=== PATIENT | female | born 1980 | race Caucasian/White ===

== ENCOUNTER 2016-05-28 07:50 | Day surgery (SDC) | payer OTHER ==
[~2016-05-28] VITALS: Ht 177.8 cm; Wt 90.3 kg
[~2016-05-28 07:50] MED LIST: CELE100C PO; RANI75TA13 PO; SERT25TA PO
[2016-05-28 08:24] VITALS: Ht 177.8 cm; Wt 90.3 kg
[2016-05-28] MEDS ORDERED: ESTRODOL (08:27)
[2016-05-28] MEDS ORDERED: QUET300T13 PO (08:31)
[2016-05-28] MEDS ORDERED: OMEP40CA6 PO (08:31)
[2016-05-28] MEDS ORDERED: CLON-412 PO (08:31)
[2016-05-28] MEDS ORDERED: LAMO200T18 PO (08:31)
[2016-05-28] MEDS ORDERED: SERT100T PO (08:31)
[2016-05-28 08:49] VITALS: BP 124/73; PULSE 72; RESP 18
[2016-05-28] MEDS ORDERED: PROPOFOL 60 ML ONE (09:05)
[2016-05-28] MEDS ORDERED: LIDOCAINE 2% (SDV) 5 ML INJ ONE ×2 (09:06→09:29)
[2016-05-28 09:56] VITALS: BP_SYST 108; RESP 20
--- NOTE | 2016-05-28 12:09 | GILP ---
DATE OF PROCEDURE: 05/28/2016 PROCEDURE: Colonoscopy. 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 The risks of the procedure, related and unrelated complications, anesthetic ri sks, alternatives discussed and informed consent was obtained. DESCRIPTION OF PROCEDURE: The patient was brought to the GI lab, sedated by Dr. Sin. The scope w as passed with much ease into rectum, advanced through sigmoid, descending, transverse colon all the way into cecum. Appendiceal orifice identified. IC valve identified. The whole caput of the cecu m was covered with a thin layer of stool. We cleaned it with a jet of water and so far no lesion wa s identified. IC valve was tight. While coming out, the rest of the mucosa thoroughly inspected. No gross lesion was identified. Solitary diverticulum seen. Retroversion done, small hemorrhoids i dentified. Scope was straightened out and removed with good patient tolerance. IMPRESSION: 1. Normal finding all the way into cecum. 2. Solitary diverticulum in the descending colon. 3. Small hemorrhoids. 4. Slight inadequate prep. PLAN: At this point, is to stay on a high fiber diet. The patient needs repeat colonoscopy in 5 ye ars. Dictated By: LENARD ESQUIVEL/NTS Conf#: [id number] DID#: [id number] CC: JHONATAN; LENARD CLEMENS MD;*EndCC*
== END 2016-05-28 11:49 | disposition home or self-care (01) ==
LOC: GIL 07:50
PROVIDERS: ATTEND Internal Medicine Gastroenterology
DX: Z12.11 Encounter for screening for malignant neoplasm of colon (principal); K57.90 Diverticulosis of intestine, part unspecified, without perforation or abscess without bleeding; K64.9 Unspecified hemorrhoids
CPT/HCPCS: 45378; Z7610

== ENCOUNTER 2017-01-15 07:51 | Day surgery (SDC) | payer OTHER ==
[2017-01-14 09:52] VITALS: BMI 28.3
[~2017-01-15] VITALS: Ht 177.8 cm; Wt 89.5 kg
[2017-01-15] VITALS (11 sets, daily range): BP systolic 92–119; BP diastolic 62–78; PULSE 59–82; RESP 11–22; Ht 177.8 cm; Wt 89.5 kg
[~2017-01-15 07:51] MED LIST changes: +CEFAZOLIN 1 GM INJ ONE; -CELE100C PO; +CLON-412 PO; +EPHEDrine SULFATE 50 MG/5 ML SYG ONE; +ESTRODOL; +LAMO200T18 PO; +OMEP40CA6 PO; +QUET300T13 PO; -RANI75TA13 PO; +SERT100T PO
[2017-01-15] MEDS ORDERED: SOD CHLORIDE 0.9% 1,000 ML IV ONE (08:30)
[2017-01-15] MEDS ORDERED: LTH150C PO (08:32)
[2017-01-15] MEDS ORDERED: LAMO100T PO (08:33)
[2017-01-15] MEDS ORDERED: GABA300C16 PO (08:34)
[2017-01-15] MEDS ORDERED: FIORICET PO (08:47)
[2017-01-15] MEDS ORDERED: CYCL-319 PO (08:48)
[2017-01-15] MEDS ORDERED: FENTAnyl 50 MCG/ML VIAL ONE (09:03)
[2017-01-15] MEDS ORDERED: LIDOCAINE 2% (SDV) 5 ML INJ ONE (09:03)
[2017-01-15] MEDS ORDERED: PROPOFOL 20 ML ONE (09:03)
[2017-01-15] MEDS ORDERED: DEXAMETHASONE 4 MG/ML 1 ML INJ ONE (09:04)
[2017-01-15] MEDS ORDERED: MIDAZOLAM 1 MG/ML 2 ML INJ ONE (09:04)
[2017-01-15] MEDS ORDERED: ONDANSETRON 4 MG INJ ONE (09:05)
[2017-01-15] MEDS ORDERED: FAMOTIDINE 20 MG INJ ONE (09:05)
[2017-01-15] MEDS ORDERED: OXYCODONE/ACETAMINOPHEN (5/325) TAB PO PRN ×2 (10:00)
[2017-01-15] MEDS ORDERED: MEPERIDINE 25 MG INJ IV PRN (10:00)
[2017-01-15] MEDS ORDERED: DIPHENHYDRAMINE 50 MG INJ IV PRN (10:00)
[2017-01-15] MEDS ORDERED: METOCLOPRAMIDE 10 MG INJ IV PRN (10:00)
[2017-01-15] MEDS ORDERED: FENTAnyl 50 MCG/ML VIAL IV PRN ×2 (10:00)
--- NOTE | 2017-01-15 10:36 | SIPON ---
Date/Time of Note Date/Time of Note DATE: 01/15/17 TIME: 10:35 Operative Report Preoperative Diagnosis Left breast mass Postoperative Diagnosis Same Operation/Procedure Performed Excision of left breast mass Surgeon see signature line pediatric dental assistant Dr Jones Anesthesia: general Estimated blood loss: 0 - 10 ml's Transfusion Required none Specimen Left breast mass Grafts/Implants none Complications none EVA TORRES MD Jan 15, 2017 10:36
[2017-01-15] MEDS: FENTAnyl 50 MCG/ML VIAL IV PRN ×2 (10:58→11:05)
--- NOTE | 2017-01-15 11:27 | OPR ---
DATE OF OPERATION: 01/15/2017 PREOPERATIVE DIAGNOSIS: Left breast mass. POSTOPERATIVE DIAGNOSIS: Left breast mass. OPERATION PERFORMED: Excision of left breast mass. ANESTHESIA: General. ANESTHESIOLOGIST: Dr. Rossi. SURGEON: Dennys Bermudez MD HEAD BAKER: Dr. Jones. INDICATIONS FOR PROCEDURE: The patient is a 36-year-old female who presented with a palpable mass a pproximately the 2 o'clock location of the left breast adjacent to the nipple-areolar border. MRI w as performed and lesion had a benign appearance on MRI; however, the patient states she had symptoms and was requesting excision. She consented and was scheduled for surgery. DESCRIPTION OF PROCEDURE: The patient was brought to the operating theater, placed under general an esthesia. The left breast was prepped and draped in usual sterile fashion. A periareolar incision was made from the 12 o'clock location to the 3 o'clock location with 15 blade scalpel. Subcutaneous tissue was dissected with cautery. Skin edges were elevated with skin hooks and wide circumferenti al dissection of the tissue associated with the mass took place. It was elevated, transected, and s ent for permanent pathologic analysis. The wound was irrigated. Residual bleeding was controlled w ith cautery, and the skin was then reapproximated with a 5-0 PDS suture in subcuticular fashion. Be nzoin and Steri-Strips were then applied. Patient tolerated the procedure well. The estimated bloo d loss was approximately 10 mL. There were no complications and the patient was transported in stab le condition to the recovery room where circumferential compression dressing was applied. Dictated By: DENNYS SOSA/SLOAN Conf#: [id number] DID#: [id number]
== END 2017-01-15 13:05 | disposition home or self-care (01) ==
LOC: SDS 07:51
PROVIDERS: ATTEND Surgery Surgical Oncology
DX: D24.2 Benign neoplasm of left breast (principal); J45.909 Unspecified asthma, uncomplicated; E66.9 Obesity, unspecified
CPT/HCPCS: 19120; 88307; J0690; J1100; J2250; J2405; J2765; J3010; Z7512; Z7610